=== PATIENT | female | born 1980 | race Caucasian/White ===

== ENCOUNTER 2017-02-18 05:31 | Emergency (ER) | payer SELFPAY ==
--- NOTE | 2017-02-18 18:10 | ER ---
ADMIT: 02/18/2017 RM/LOC: ER [facility] MR#: [id number] [address] [id number] JAZZ FRANKLIN [address] [place] [id number] Emergency Room Report SEX: F AGE: 36 : 1980 DATE: 02/18/2017 ADDENDUM: The patient was checked out to me by Dr. Hernandez. She arrived at our facility this morning for evaluation of alcohol abuse, intoxication, and dependence. Apparently, she had been in an alcohol treatment program fairly recently, but they did not have any inpatient treatment available in [place]. It is of my understanding, she came to our facility. The patient received some IV fluids prior to my seeing her and when I evaluated her, she was able to wake up and answer questions. She states she was willing to go through with alcohol evaluation and treatment program. At this point, her alcohol level was 146 down from 233 prior to arrival. We will be speaking to [facility] to see if we get into their facility to be evaluated for her alcohol dependence. The patient is discharged in stable improved condition. Shilo Sommer MD/ darlene JOB #: [id number] CC: Franki Hernandez MD, Attending Physician Artem Blair MD, Family Physician
--- NOTE | 2017-02-18 19:09 | ER ---
ADMIT: 02/18/2017 RM/LOC: ER [facility] MR#: [id number] [address] [id number] LLUVIA FRANKLIN [address] [place] [id number] Emergency Room Report SEX: F AGE: 36 : 1980 DATE: 02/18/2017 HISTORY OF PRESENT ILLNESS: Lluvia is a 36-year-old female with a past medical history allegedly of bipolar and alcohol abuse, who was transferred from [facility], talking to the ER physician, they mentioned that the patient was discharged day before from the rehab and 45 minutes before coming to the ER. She drank consumed alcohol and allegedly the patient got into the ER and was agitated and got into discussion with the ER personnel and one at the treatment because she felt that if there is no treatment, she would go to seizure and withdrawal, allegedly did not say anything about tachycardia or other symptoms of the withdrawal. The patient was given Ativan 1 mg p.o. and 1 mg IV per chart and Toradol and also Phenergan 12.5 and was transferred to our center. The ER physician on the phone was looking for a place for rehab, and I discussed that after controlling the withdrawal or abuse symptoms here, we always send out because we do not have the rehab in our hospital, but exited patient for early followups and treatment openly. The patient was transferred here per chart and per EMS. The patient became drowsy by the time they wanted to transfer the patient and but was arousable, questionable for sedation and ETOH abuse per chart and also per EMS the patient had systolic blood pressure of 90s and diastolic is 60, but today heart rate was in 80s. The patient received 700 mL of normal saline en route, the patient was brought to the ER. As per chart, the patient was diaphoretic in the [place]. In the ER, the patient was drowsy, but arousable and follows command. After talking to the patient, she opens eyes and slowly follows the commands. The patient moves all extremities and denies any trauma and states that she has not used her medication for bipolar for many years. The patient denied using chronic ingestion of any medications. The patient's systolic blood pressure was 89 to 90s and map was in 59-60. The patient's temperature was also 96. The patient was started on bolus 1 L of normal saline in the ER, fingerstick blood sugar was checked and was 62 and the patient received a vial of D50 percent after which the patient's mental status improved to some degree. Still the patient is drowsy. PHYSICAL EXAMINATION: HEENT: Pupils are 2 mm reactive to light. Normal extraocular movement. I did not see any signs of trauma in the head and neck. CHEST: Clear. ADMIT: 02/18/2017 RM/LOC: ER [facility] MR#: [id number] [address] [place] [id number] [place] [address] Emergency Room Report SEX: F AGE: 36 : 1980 HEART: Normal heart sounds. ABDOMEN: Soft. EXTREMITIES: There is no signs of recent or obvious traumas in the extremities or in the body. The patient also denies any trauma. EMERGENCY ROOM COURSE: EKG was normal sinus rhythm with normal QT corrected interval. Lab work was sent. The patient is under observation. Tylenol level was 3.9 and the patient had sodium of 143, potassium of 4.0, and glucose level was 215, creatinine was 0.7 and calcium corrected was 7.2. Urine test was negative. The patient was signed out to the next shift to follow up the rest of the lab works and observed the patient for the resolution of the altered mental status and disposition accordingly. Franki Hernandez MD/ darlene JOB #: [id number] CC: Franki Hernandez MD, Attending Physician Artem Blair MD, Family Physician
== END 2017-02-18 09:40 | disposition other institution (70) ==
LOC: ER 05:31
DX: F10.129 Alcohol abuse with intoxication, unspecified (principal); E16.2 Hypoglycemia, unspecified; R41.82 Altered mental status, unspecified; F31.9 Bipolar disorder, unspecified; G40.909 Epilepsy, unspecified, not intractable, without status epilepticus; Z79.899 Other long term (current) drug therapy; Y90.6 Blood alcohol level of 120-199 mg/100 ml